=== PATIENT | female | born 1945 | race Caucasian/White ===

== ENCOUNTER 2017-04-06 15:50 | Inpatient (IN) | payer MEDICARE ==
[2017-04-06] VITALS (7 sets, daily range): BP systolic 116–135; BP diastolic 69–79; PULSE 86–106; RESP 18–40; TEMP 96.4–97.3; O2SAT 79–95
[~2017-04-06] VITALS: Ht 167.6 cm; Wt 48.6 kg
[~2017-04-06 15:50] MED LIST: ACLI1AER2 IN; ADVA250A INH; ASPI81 PO; ATOR10TA PO; DILT240C7 PO; DORZO2%O; LASI20TA PO; LATA.005%O EACH EYE; LORA10TA PO; LORTA5 PO; LOSA50TA; METO25CR PO; RANI150 PO; Z.0.COMMODE-3:1; Z.0.CPM; Z.0.WALKERFRONT
[2017-04-06] MEDS ORDERED: methylPREDNISolone SOD SUCC 125 MG/2 ML VIAL IV PUSH ONE (16:00)
[2017-04-06] MEDS ORDERED: SODIUM CHLORIDE 0.9% FLUSH 10 ML FLUSH IVF PRN (16:00)
--- NOTE | 2017-04-06 16:04 | PD ---
HPI Chief Complaint: Respiratory Distress Time Seen by Provider: 16:00 Travel History International Travel<30 days: No Contact w/Intl Traveler<30days: No Traveled to known affect area: No History of Present Illness HPI The patient was seen and examined in the presence of the nurse. This patient complains of shortness of breath. She has history of long-standing COPD. She is smoked up until 5 days ago. She's been short of breath for the last 10 days. She has a chronic cough. She denies chest pain or fever. Symptoms are severe. She is hypoxic on room air. She uses oxygen at home as needed. She has a nebulizer. No alleviating factors. Symptoms exacerbated by her continued smoking despite chronic lung disease PFSH Past Medical History Arthritis: No Asthma: Yes Atrial Fibrillation: Yes Anxiety: Yes Depression: Yes Heart Rhythm Problems: Yes (AFIB ) Cancer: Yes (CERVICAL AND UTERINE) Cardiovascular Problems: Yes (A FIB, CAD, HEART STENTS) High Cholesterol: Yes Chest Pain: No Congestive Heart Failure: No COPD: Yes Cerebrovascular Accident: No Coronary Artery Disease: Yes Diabetes: No Diminished Hearing: No Endocrine: No Gastrointestinal Disorders: Yes GERD: Yes Glaucoma: Yes Genitourinary: No Headaches: Yes Hepatitis: Yes (HISTORY OF A,B AND C) Hiatal Hernia: No Hypertension: Yes Immune Disorder: No Implanted Vascular Access Dvce: Yes Kidney Stones: No Musculoskeletal: Yes (RIGHT KNEE) Neurologic: No Psychiatric: No Reproductive: No Respiratory: Yes (COPD) Immunizations Current: Yes Migraines: No Seizures: No Thyroid Disease: No Menopausal: Yes Past Surgical History Abdominal Surgery: Yes AICD: No Body Medical Devices: CARDIAC AND LEG STENTS Cardiac Surgery: No Ear Surgery: No Endocrine Surgery: No Eye Surgery: Yes (JEB CATARACTS WITH LENS IMPLANTS) Genitourinary Surgery: No Gynecologic Surgery: Yes (HYSTERECTOMY) Hysterectomy: Yes Joint Replacement: No Oral Surgery: Yes (TONSILLECTOMY) Pacemaker: No Thoracic Surgery: No Tonsillectomy: Yes Other Surgery: Yes (EXCISION OF PAROTID TUMOR/GLAND TOTAL;FEMORAL STENTS) Social History Alcohol Use: No Tobacco Use: Yes (2 CIGS/DAY) Substance Use: No Allergies-Medications (Allergen,Severity, Reaction): Coded Allergies: lisinopril (Unverified Allergy, Intermediate, 04/06/17) BLISTERS AND COUGH brimonidine (Unverified Allergy, Unknown, UNKNOWN, 04/06/17) Reported Meds & Prescriptions Reported Meds & Active Scripts Active Reported Losartan (Losartan Potassium) 25 Mg Tab 25 Mg PO DAILY Furosemide 20 Mg Tab 20 Mg PO BID Diltiazem ER 12 HR (Diltiazem HCl) 120 Mg Caper 240 Mg PO BID Metoprolol Tartrate 25 Mg Tab 25 Mg PO BID Review of Systems General / Constitutional: No: Fever Eyes: No: Visual changes HENT: Positive: Congestion, No: Headaches Cardiovascular: No: Chest Pain or Discomfort Respiratory: Positive: Cough, Shortness of Breath, Wheezing Gastrointestinal: No: Abdominal Pain Genitourinary: No: Dysuria Musculoskeletal: No: Pain Skin: No Rash Neurologic: No: Weakness Psychiatric: No: Depression Endocrine: No: Polydipsia Hematologic/Lymphatic: No: Easy Bruising Physical Exam Narrative GENERAL: Thin elderly patient in respiratory distress. SKIN: Focused skin assessment reveals no rash and nodules. Skin is Warm and dry. HEAD: Atraumatic. Normocephalic. EYES: Pupils equal and round. No scleral icterus. No injection or drainage. ENT: No nasal bleeding or discharge. Mucous membranes pink and moist. NECK: Trachea midline. No JVD. CARDIOVASCULAR: Regular rate and rhythm. No murmur appreciated. RESPIRATORY: Positive accessory muscle use. Diffuse expiratory wheezing with rhonchi . breath sounds equal bilaterally. GASTROINTESTINAL: Abdomen soft, non-tender, nondistended. Hepatic and splenic margins not palpable. MUSCULOSKELETAL: No obvious deformities. No clubbing. No cyanosis. No edema. NEUROLOGICAL: Awake and alert. No obvious cranial nerve deficits. Motor grossly within normal limits. Normal speech. PSYCHIATRIC: Appropriate mood and affect; insight and judgment poor . Data Data Last Documented VS Vital Signs Date Time Temp Pulse Resp B/P (MAP) Pulse Ox O2 Delivery O2 Flow Rate FiO2 04/06/17 17:01 95 Nasal Cannula 3.00 04/06/17 15:59 40 04/06/17 15:57 106 04/06/17 15:52 96.4 Orders Orders Complete Blood Count With Diff (04/06/17 16:00) Basic Metabolic Panel (Bmp) (04/06/17 16:00) Influenzae A/B Antigen (04/06/17 16:00) Iv Access Insert/Monitor (04/06/17 16:00) Electrocardiogram (04/06/17 16:00) Ecg Monitoring (04/06/17 16:00) Oximetry (04/06/17 16:00) Oxygen Administration (04/06/17 16:00) Chest, Single Ap (04/06/17 16:00) Sodium Chloride 0.9% Flush (Ns Flush) (04/06/17 16:00) Methylprednisolone So Succ Inj (Solumedr (04/06/17 16:00) Albuterol-Ipratropium Neb (Duoneb Neb) (04/06/17 16:00) Ceftriaxone Inj (Rocephin Inj) (04/06/17 16:45) Admit To Inpatient (04/06/17 ) Code Status (04/06/17 16:56) Vital Signs (Adult) Q4H (04/06/17 16:56) Activity Oob With Assistance (04/06/17 16:56) Diet 1800 Ada Cons Carb (04/06/17 Dinner) Sodium Chloride 0.9% Flush (Ns Flush) (04/06/17 17:00) Sodium Chloride 0.9% Flush (Ns Flush) (04/06/17 21:00) Acetaminophen (Tylenol) (04/06/17 17:00) Ondansetron Inj (Zofran Inj) (04/06/17 17:00) Basic Metabolic Panel (Bmp) (04/07/17 06:00) Complete Blood Count With Diff (04/07/17 06:00) Chest, Pa & Lat (04/07/17 08:00) Electrocardiogram (04/06/17 16:56) Resp Oxygen Kimani C Titrat 1-4 L (04/06/17 ) Pt Request For Service (04/06/17 16:56) Scd Bilateral/Knee High SAMIRA.BID (04/06/17 16:56) Naloxone Inj (Narcan Inj) (04/06/17 17:00) Magnesium Hydroxide Liq (Milk Of Magnesi (04/06/17 17:00) Inpatient Certification (04/06/17 ) Ceftriaxone Inj (Rocephin Inj) (04/07/17 08:00) Azithromycin (Zithromax) (04/06/17 17:00) Azithromycin (Zithromax) (04/07/17 09:00) Albuterol-Ipratropium Neb (Duoneb Neb) (04/06/17 20:00) Albuterol-Ipratropium Neb (Duoneb Neb) (04/06/17 17:00) Methylprednisolone So Succ Inj (Solumedr (04/06/17 17:00) Atorvastatin (Lipitor) (04/06/17 21:00) Fluticason-Vilanter 100-25 Inh (Breo Ell (04/06/17 17:15) 1/2 Ns + Kcl 20 Meq Inj (1/2 Ns + Kcl 20 (04/06/17 18:00) Metoprolol Tartrate (Lopressor) (04/06/17 21:00) Diltiazem Cd (Cardizem Cd) (04/06/17 21:00) Albuterol-Ipratropium Neb (Duoneb Neb) (04/06/17 20:00) Methylprednisolone So Succ Inj (Solumedr (04/06/17 23:00) Admit Order (Ed Use Only) (04/06/17 17:46) Labs Laboratory Tests Test 04/06/17 16:30 White Blood Count 17.0 TH/MM3 Red Blood Count 5.39 MIL/MM3 Hemoglobin 16.2 GM/DL Hematocrit 49.9 % Mean Corpuscular Volume 92.7 FL Mean Corpuscular Hemoglobin 30.1 PG Mean Corpuscular Hemoglobin Concent 32.5 % Red Cell Distribution Width 14.6 % Platelet Count 247 TH/MM3 Mean Platelet Volume 9.1 FL Neutrophils (%) (Auto) 84.6 % Lymphocytes (%) (Auto) 6.8 % Monocytes (%) (Auto) 8.2 % Eosinophils (%) (Auto) 0.1 % Basophils (%) (Auto) 0.3 % Neutrophils # (Auto) 14.4 TH/MM3 Lymphocytes # (Auto) 1.2 TH/MM3 Monocytes # (Auto) 1.4 TH/MM3 Eosinophils # (Auto) 0.0 TH/MM3 Basophils # (Auto) 0.1 TH/MM3 CBC Comment DIFF FINAL Differential Comment MDM Medical Decision Making Medical Screen Exam Complete: Yes Emergency Medical Condition: Yes Medical Record Reviewed: Yes Differential Diagnosis Differential diagnosis includes COPD, asthma, pneumonia, bronchitis, CHF Narrative Course I have reviewed the patient's electronic medical record. Patient was last here in 2016 This patient arrives critically ill with acute hypoxic respiratory failure from COPD IV placed I gave her IV soluMedrol and a series of 3 nebulizer treatments On 6 L nasal cannula she is barely getting 90% CBC shows leukocytosis which she's been on a lot of steroids lately Metabolic profile is pending I reviewed her chest x-ray which shows COPD changes as well as questionable right before meals infiltrate I reviewed her EKG shows A. fib which is chronic per patient Extended cardiac monitoring shows A. fib but rate controlled in the 80s Patient came in extremely dyspneic and critical at this point is improved with the above treatments but still requiring hospitalization and not stable for outpatient follow-up. Case reviewed with hospitalist will admit Critical Care Narrative Aggregate critical care time was 34 minutes. Time to perform other separately billable procedures was not included in the critical care time. My time did not include minutes spent treating any other patients simultaneously or on activities that did not directly contribute to the patient's treatment. The services I provided to this patient were to treat and/or prevent clinically significant deterioration that could result in: Cardiopulmonary arrest, hypoxemic brain injury, respiratory collapse I provided critical care services requiring my management, as noted below: Chart data review, documentation time, medication orders and management, vital sign assessments/reviewing monitor data, ordering and reviewing lab tests, ordering and interpreting/reviewing x-rays and diagnostic studies, care of the patient and discussion of the patient with the admitting physicians. Diagnosis Primary Impression: Acute respiratory failure with hypoxia Additional Impression: COPD exacerbation Admitting Information Admitting Physician Requests: Admit Mohit Peña MD Apr 06, 2017 16:04
[2017-04-06] MEDS: RESP: ALBUTEROL 2.5 MG/IPRATROPIUM 0.5 MG NEB (SCH) INH (16:05)
[2017-04-06] MEDS ORDERED: DILT120C9 PO (16:13)
[2017-04-06] MEDS ORDERED: FURO20TA PO (16:13)
[2017-04-06] MEDS ORDERED: METO25TA3 PO (16:13)
[2017-04-06] MEDS ORDERED: LOSA25TA PO (16:13)
--- NOTE | 2017-04-06 16:29 | RADRPT ---
EXAM DATE/TIME: 04/06/2017 16:20 [facility] COMPARISON: CHEST SINGLE AP, March 19, 2014, 7:45. INDICATIONS : Shortness of breath. MEDICAL HISTORY : Hypertension. Hypercholesterolemia. Hypertension. Coronary artery disease, AFIB, COPD, SURGICAL HISTORY : Stents. ENCOUNTER: Initial ACUITY: 2 weeks PAIN SCORE: 0/10 LOCATION: Bilateral chest FINDINGS: A single view of the chest demonstrates hyperaeration both lung del real with a new mild infiltrate in the right lung base. Left lung is grossly clear. Heart size is stable. There are no pleural effusions or pulmonary edema. The bony structures are stable.. CONCLUSION: 1. COPD with new patchy infiltrate in the right lung base suggestive of pneumonia. Lonnie Bunch MD on April 06, 2017 at 16:26 Board Certified Radiologist. This report was verified electronically.
[2017-04-06] MEDS ORDERED: cefTRIAXone INJ 1,000 MG in SODIUM CHLORIDE 0.9% INJ 100 ML IV ONE (16:45)
[2017-04-06] MEDS ORDERED: RESP: ALBUTEROL 2.5 MG/IPRATROPIUM 0.5 MG NEB (PRN) NEB (17:00)
[2017-04-06] MEDS ORDERED: methylPREDNISolone SOD SUCC 125 MG/2 ML VIAL IV PUSH SCH (17:00)
[2017-04-06] MEDS ORDERED: ACETAMINOPHEN 325 MG TAB PO PRN (17:00)
[2017-04-06] MEDS ORDERED: MAGNESIUM HYDROXIDE SUSP 30 ML CUP PO PRN (17:00)
[2017-04-06] MEDS ORDERED: AZITHROMYCIN 250 MG TAB PO ONE (17:00)
[2017-04-06] MEDS ORDERED: NALOXONE HCL 0.4 MG/ML AMP IV PUSH PRN (17:00)
[2017-04-06] MEDS ORDERED: ONDANSETRON HCL 4 MG/2 ML VIAL IVP PRN (17:00)
[2017-04-06] MEDS ORDERED: SODIUM CHLORIDE 0.9% FLUSH 10 ML FLUSH IV FLUSH PRN (17:00)
[2017-04-06 17:20] LABS: AUTOMATED NEUTROPHIL # 14.4 TH/MM3 (1.8-7.7); BASOPHIL # 0.1 TH/MM3 (0-0.2); BASOPHIL % 0.3 % (0.0-2.0); EOSINOPHIL % 0.1 % (0.0-4.0); HEMATOCRIT 49.9 % (35.0-46.0); HEMO FLAGS DIFF FINAL; LYMPH % 6.8 % (9.0-44.0); LYMPHOCYTE # 1.2 TH/MM3 (1.0-4.8); MEAN CELL VOLUME 92.7 FL (80.0-100.0); MEAN CORPUSCULAR HEMOGLOBIN 30.1 PG (27.0-34.0); MEAN CORPUSCULAR HGB CONC 32.5 % (32.0-36.0); MONO % 8.2 % (0.0-8.0); NEUT % 84.6 % (16.0-70.0); PLATELET COUNT 247 TH/MM3 (150-450); RED BLOOD COUNT 5.39 MIL/MM3 (4.00-5.30); RED CELL DISTRIBUTION WIDTH 14.6 % (11.6-17.2)
--- NOTE | 2017-04-06 17:30 | HHI.HP ---
HPI Service [facility] Hospitalists Primary Care Physician Lon Garrison, DO Admission Diagnosis Chief Complaint: "just not getting any better" cough and SOB x 10 days Travel History International Travel<30 Days: No Contact w/Intl Traveler <30 Da: No Traveled to Known Affected Are: No History of Present Illness This is 72 year old female patient with a past medical history which includes COPD, DM type 2, HTN, hypolipidemia, atrial fibrillation, 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 Patient reports she has mild SOB with chronic cough at baseline , but over the past 10days the SOB has gotten progressively worse. Patient endorses wheezing. Patient unable to sleep through the night due to her SOB and cough. Cough is non productive. Patient endorses associated decreased appetite as well. Patient reports that 2 of her family members have been sick with, "sinus infection." Denies other sick contacts. Patient denies fevers, chills, N/V/D/C, chest pain or dysuria. CXR in ER reveals: COPD with new patchy infiltrate in the right lung base suggestive of RLL pna oxygen saturation on RA upon arrival 79% WBC 17.0 Review of Systems Constitutional: COMPLAINS OF: Fatigue, DENIES: Fever, Chills Eyes: DENIES: Blurred vision, Diplopia, Vision loss Respiratory: COMPLAINS OF: Cough, Wheezing, Shortness of breath, DENIES: Sputum production Cardiovascular: COMPLAINS OF: Dyspnea on Exertion, Orthopnea, DENIES: Chest pain, Palpitations, Lower Extremity Edema Gastrointestinal: DENIES: Abdominal pain, Nausea, Vomiting Neurologic: DENIES: Abnormal gait, Headache, Localized weakness, Speech Problems Psychiatric: DENIES: Anxiety, Confusion, Depression Past Family Social History Past Medical History Severe COPD. Chronic atrial fibrillation. She has PAD and had stenting of the left lower extremity, the iliac and the superficial femoral arteries. History of IV drug use and subsequently hepatitis C. hyperlipidemia. degenerative joint disease. hypertension. Glaucoma osteoporosis parotid surgery which apparently was a benign Warthin's tumor. Past Surgical History Cataract surgery LASIK surgery. Right knee arthroscopic surgery for lateral meniscal tear. Tonsillectomy and adenoidectomy. BESSIE, BSO. Reported Medications Losartan (Losartan Potassium) 25 Mg Tab 25 Mg PO DAILY Furosemide 20 Mg Tab 20 Mg PO BID Diltiazem ER 12 HR (Diltiazem HCl) 120 Mg Caper 240 Mg PO BID Metoprolol Tartrate 25 Mg Tab 25 Mg PO BID Breo ellipta 100/25 1 puff once a day Atorvastatin 10 PO QHS Allergies: Coded Allergies: lisinopril (Unverified Allergy, Intermediate, 04/06/17) BLISTERS AND COUGH brimonidine (Unverified Allergy, Unknown, UNKNOWN, 04/06/17) Active Ordered Medications Current Medications Medications (Trade) Dose Ordered Sig/Libia Route Start Time Stop Time Status Last Admin (NS Flush) 2 ml UNSCH PRN IVF 04/06/17 16:00 (NS Flush) 2 ml UNSCH PRN IV FLUSH 04/06/17 17:00 (NS Flush) 2 ml BID IV FLUSH 04/06/17 21:00 (Tylenol) 650 mg Q4H PRN PO 04/06/17 17:00 (Zofran Inj) 4 mg Q6H PRN IVP 04/06/17 17:00 (Narcan Inj) 0.4 mg UNSCH PRN IV PUSH 04/06/17 17:00 (Milk Of Magnesia Liq) 30 ml Q12H PRN PO 04/06/17 17:00 Ceftriaxone Sodium 1000 mg/ Sodium Chloride 100 ml @ 200 mls/hr Q24H IV 04/07/17 08:00 (Zithromax) 250 mg DAILY PO 04/07/17 09:00 (Duoneb Neb) 1 ampule Q2HR NEB PRN NEB 04/06/17 17:00 (Lipitor) 10 mg HS PO 04/06/17 21:00 (Breo Ellipta 100-25 Inh) 1 puff DAILY INH 04/06/17 17:15 Potassium Chloride/Sodium Chloride 1,000 ml @ 84 mls/hr [id number] IV 04/06/17 18:00 (Lopressor) 25 mg BID PO 04/06/17 21:00 (Cardizem Cd) 240 mg BID PO 04/06/17 21:00 (Duoneb Neb) 1 ampule Q4HR NEB NEB 04/06/17 20:00 (SoluMEDROL INJ) 60 mg Q6H IV PUSH 04/06/17 23:00 Family History noncontributory Social History hx ivdu quit smoking 5 days ago prior to that has a 30 pack year history denies ETOH use Physical Exam Vital Signs Vital Signs Date Time Temp Pulse Resp B/P (MAP) Pulse Ox O2 Delivery O2 Flow Rate FiO2 04/06/17 17:01 95 Nasal Cannula 3.00 04/06/17 16:15 95 Nasal Cannula 3.00 04/06/17 15:59 40 82 Room Air 04/06/17 15:57 106 40 82 04/06/17 15:55 99 Aerosol Mask 8.00 04/06/17 15:52 96.4 97 22 116/79 (91) 79 Physical Exam GENERAL: This is an elderly female patient, well-developed patient, SOB with conversation sitting up leaning forward SKIN: scattered ecchymosis BUE generally thin skin HEAD: Atraumatic. Normocephalic. No temporal or scalp tenderness. EYES: Extraocular motions intact. No scleral icterus. No injection or drainage. CARDIOVASCULAR: Regular rate and rhythm RESPIRATORY: Coarse scattered rhonchi through out with both inspiration and expiration GASTROINTESTINAL: Abdomen soft, non-tender, nondistended. No guarding. MUSCULOSKELETAL: Extremities without clubbing, cyanosis, or edema. No joint tenderness, effusion, or edema noted. No calf tenderness. Negative Homans sign bilaterally. NEUROLOGICAL: Awake and alert. No focal deficits noted. Motor and sensory grossly within normal limits. 4 out of 5 muscle strength in all muscle groups. Normal speech. Laboratory Laboratory Tests Test 04/06/17 16:30 White Blood Count 17.0 Red Blood Count 5.39 Hemoglobin 16.2 Hematocrit 49.9 Mean Corpuscular Volume 92.7 Mean Corpuscular Hemoglobin 30.1 Mean Corpuscular Hemoglobin Concent 32.5 Red Cell Distribution Width 14.6 Platelet Count 247 Mean Platelet Volume 9.1 Neutrophils (%) (Auto) 84.6 Lymphocytes (%) (Auto) 6.8 Monocytes (%) (Auto) 8.2 Eosinophils (%) (Auto) 0.1 Basophils (%) (Auto) 0.3 Neutrophils # (Auto) 14.4 Lymphocytes # (Auto) 1.2 Monocytes # (Auto) 1.4 Eosinophils # (Auto) 0.0 Basophils # (Auto) 0.1 CBC Comment DIFF FINAL Differential Comment Date/Time Source Procedure Growth Status 04/06/17 16:30 Nasal Washing Influenza Types A,B Antigen (SUSY) - Final NEGATIVE FOR FLU A AND B ANTIGEN.... Complete Result Diagram: 04/06/17 1630 Imaging Last Impressions Chest X-Ray 04/06/17 1600 Signed Impressions: Service Date/Time: Thursday, April 06, 2017 16:20 - CONCLUSION: 1. COPD with new patchy infiltrate in the right lung base suggestive of pneumonia. MD Marc Alcala VTE Risk Assessment Marc VTE Risk Assessment: Mod/High Risk (score >= 2) Caprini Risk Assessment Model Point Value = 1 Point Value = 2 Point Value = 3 Point Value = 5 Age 41-60 Minor surgery BMI > 25 kg/m2 Swollen legs Varicose veins or History of unexplained or recurrent spontaneous Oral contraceptives or hormone replacement Sepsis (< 1 month) Serious lung disease, including pneumonia (< 1 month) Abnormal pulmonary function Acute myocardial infarction Congestive heart failure (< 1 month) History of inflammatory bowel disease Medical patient at bed rest Age 61-74 Arthroscopic surgery Major open surgery (> 45 min) Laparoscopic surgery (> 45 min) Malignancy Confined to bed (> 72 hours) Immobilizing plaster cast Central venous access Age >= 75 History of VTE Family history of VTE Factor V Leiden Prothrombin [id number] Lupus anticoagulant Anticardiolipin antibodies Elevated serum homocysteine Heparin-induced thrombocytopenia Other congenital or acquired thrombophilia Stroke (< 1 month) Elective arthroplasty Hip, pelvis, or leg fracture Acute spinal cord injury (< 1 month) Prophylaxis Regimen Total Risk Factor Score Risk Level Prophylaxis Regimen 0-1 Low Early ambulation 2 Moderate Order ONE of the following: *Sequential Compression Device (SCD) *Heparin 5000 units SQ BID 3-4 Higher Order ONE of the following medications: *Heparin 5000 units SQ TID *Enoxaparin/Lovenox 40 mg SQ daily (WT < 150 kg, CrCl > 30 mL/min) *Enoxaparin/Lovenox 30 mg SQ daily (WT < 150 kg, CrCl > 10-29 mL/min) *Enoxaparin/Lovenox 30 mg SQ BID (WT < 150 kg, CrCl > 30 mL/min) AND/OR *Sequential Compression Device (SCD) 5 or more Highest Order ONE of the following medications: *Heparin 5000 units SQ TID (Preferred with Epidurals) *Enoxaparin/Lovenox 40 mg SQ daily (WT < 150 kg, CrCl > 30 mL/min) *Enoxaparin/Lovenox 30 mg SQ daily (WT < 150 kg, CrCl > 10-29 mL/min) *Enoxaparin/Lovenox 30 mg SQ BID (WT < 150 kg, CrCl > 30 mL/min) AND *Sequential Compression Device (SCD) Assessment and Plan Problem List: (1) PNA (pneumonia) ICD Codes: J18.9 - Pneumonia, unspecified organism Plan: This is 72 year old female patient with a past medical history which includes COPD, HTN, hypolipidemia, atrial fibrillation, 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 Patient reports she has mild SOB with chronic cough at baseline , but over the past 10days the SOB has gotten progressively worse. Patient endorses wheezing. Patient unable to sleep through the night due to her SOB and cough. Cough is non productive. Patient endorses associated decreased appetite as well. CXR in ER reveals: COPD with new patchy infiltrate in the right lung base suggestive of RLL pna oxygen saturation on RA upon arrival 72% WBC 17.0 Rocephin IV and azithromycin PO Duonebs Q4H and PRN supplemental oxygen to maintain saturation >90% repeat CXR in AM PT eval and treat DVT prophylaxis with SCDs (2) COPD exacerbation ICD Codes: J44.1 - Chronic obstructive pulmonary disease with (acute) exacerbation Plan: given solu medrol 125 on ER will start solu medrol 60mg IV Q6H patient is on Breo Ellipta continue (3) Diabetes mellitus ICD Codes: E11.9 - Type 2 diabetes mellitus without complications Plan: regularly diet controlled, not on medication at home- last HA1c 6.4% 2016 diabetic diet accu checks ACHS with SSI coverage monitor for hyperglycemia with steroids (4) Afib ICD Codes: I48.91 - Afib Status: Acute Plan: continue patient's home Cardizem 240 mg daily (5) HTN (hypertension) ICD Codes: I10 - Essential (primary) hypertension Plan: Continues patient's home metoprolol 25 mg daily hold Losartan 25 mg PO daily will resume if BP elevates monitor BP trend (6) Hyperlipemia ICD Codes: E78.5 - Hyperlipidemia, unspecified Plan: continue patient's home atorvastatin (7) Tobacco abuse ICD Codes: Z72.0 - Tobacco abuse Status: Acute Plan: Patient reports that she quit 5 days ago encouraged patient to abstain Physician Certification 2 Midnight Certification Type: Admission for Inpatient Services Order for Inpatient Services The services are ordered in accordance with Medicare regulations or non- Medicare payer requirements, as applicable. In the case of services not specified as inpatient-only, they are appropriately provided as inpatient services in accordance with the 2-midnight benchmark. Estimated LOS (days): 3 days is the estimated time the patient will need to remain in the hospital, assuming treatment plan goals are met and no additional complications. Post-Hospital Plan: Not yet determined Kerry Morales Apr 06, 2017 17:30
[2017-04-06] MEDS ORDERED: FLUT1INH INH (17:57)
[2017-04-06] MEDS ORDERED: ATOR10TA15 PO (17:57)
[2017-04-06] MEDS: FLUTICASONE 100 MCG/VILANTEROL 25 MCG INHALER INH SCH (18:18)
[2017-04-06] MEDS: 1/2 NS + KCL 20 MEQ INJ 1,000 ML IV SCH (18:19)
[2017-04-06 18:47] LABS: BICARBONATE 31.4 MEQ/L (21.0-32.0)
[2017-04-06 18:53] LABS: POTASSIUM 4.8 MEQ/L (3.5-5.1)
[2017-04-06] MEDS: RESP: ALBUTEROL 2.5 MG/IPRATROPIUM 0.5 MG NEB (SCH) NEB ×2 (19:37→23:53)
[2017-04-06] MEDS ORDERED: RESP: ALBUTEROL 2.5 MG/IPRATROPIUM 0.5 MG NEB (SCH) NEB (20:00)
[2017-04-06] MEDS: ATORVASTATIN 10 MG TAB PO SCH (21:00)
[2017-04-06] MEDS: SODIUM CHLORIDE 0.9% FLUSH 10 ML FLUSH IV FLUSH SCH (21:00)
[2017-04-06] MEDS: DILTIAZEM-CD 240 MG CAP ER PO SCH (21:00)
[2017-04-06] MEDS: METOPROLOL TARTRATE 25 MG TAB PO SCH (21:00)
[2017-04-06] MEDS: methylPREDNISolone SOD SUCC 125 MG/2 ML VIAL IV PUSH SCH (23:48)
[2017-04-07] VITALS (8 sets, daily range): BP systolic 100–125; BP diastolic 55–73; PULSE 84–109; RESP 17–19; TEMP 97.1–97.5; O2SAT 93–97
[2017-04-07] MEDS: RESP: ALBUTEROL 2.5 MG/IPRATROPIUM 0.5 MG NEB (SCH) NEB ×7 (04:13→23:16)
[2017-04-07] MEDS: methylPREDNISolone SOD SUCC 125 MG/2 ML VIAL IV PUSH SCH ×4 (06:31→21:56)
[2017-04-07] MEDS: 1/2 NS + KCL 20 MEQ INJ 1,000 ML IV SCH (06:31)
[2017-04-07 07:28] LABS: AUTOMATED NEUTROPHIL # 7.8 TH/MM3 (1.8-7.7); BASOPHIL % 0.2 % (0.0-2.0); HEMATOCRIT 45.7 % (35.0-46.0); HEMO FLAGS DIFF FINAL; LYMPH % 3.8 % (9.0-44.0); LYMPHOCYTE # 0.3 TH/MM3 (1.0-4.8); MEAN CELL VOLUME 91.9 FL (80.0-100.0); MEAN CORPUSCULAR HEMOGLOBIN 30.3 PG (27.0-34.0); MONO % 1.9 % (0.0-8.0); NEUT % 94.1 % (16.0-70.0); PLATELET COUNT 220 TH/MM3 (150-450); RED BLOOD COUNT 4.97 MIL/MM3 (4.00-5.30); RED CELL DISTRIBUTION WIDTH 14.4 % (11.6-17.2); WHITE BLOOD COUNT 8.3 TH/MM3 (4.0-11.0)
[2017-04-07 07:47] LABS: BICARBONATE 29.4 MEQ/L (21.0-32.0); POTASSIUM 5.1 MEQ/L (3.5-5.1)
[2017-04-07] MEDS: METOPROLOL TARTRATE 25 MG TAB PO SCH ×2 (09:09→21:55)
[2017-04-07] MEDS: DILTIAZEM-CD 240 MG CAP ER PO SCH (09:09)
[2017-04-07] MEDS: AZITHROMYCIN 250 MG TAB PO SCH (09:09)
[2017-04-07] MEDS: SODIUM CHLORIDE 0.9% FLUSH 10 ML FLUSH IV FLUSH SCH ×2 (09:09→21:58)
[2017-04-07] MEDS: cefTRIAXone INJ 1,000 MG in SODIUM CHLORIDE 0.9% INJ 100 ML IV SCH (09:10)
--- NOTE | 2017-04-07 09:19 | RADRPT ---
EXAM DATE/TIME: 04/07/2017 08:18 [facility] COMPARISON: CHEST SINGLE AP, April 06, 2017, 16:20. INDICATIONS : Pneumonia. Cough. Short of breath. MEDICAL HISTORY : Hypertension. Hypercholesterolemia. Hypertension. Coronary artery disease. AFIB. COPD. SURGICAL HISTORY : Stents. ENCOUNTER: Subsequent ACUITY: 3 days PAIN SCORE: 0/10 LOCATION: Bilateral chest FINDINGS: PA and lateral views of the chest demonstrate bibasilar airspace disease. Heart mildly enlarged.. Th e cardiomediastinal contours are unremarkable. Osseous structures are intact. CONCLUSION: Bibasilar pneumonia slightly worse on current study. Jamin Cooley MD on April 07, 2017 at 9:16 Board Certified Radiologist. This report was verified electronically.
--- NOTE | 2017-04-07 09:26 | HHI.PR ---
Subjective Remarks asking for sleeping pill, her lortab, diflucan for thrush and her "heart meds" Objective Vitals nad heart reg lung bilateral wheezing/rhonci abd s/nt ext no edema Vital Signs Date Time Temp Pulse Resp B/P (MAP) Pulse Ox O2 Delivery O2 Flow Rate FiO2 04/07/17 04:00 97.5 86 17 119/73 (88) 96 04/07/17 00:00 97.5 84 17 100/55 (70) 93 04/06/17 23:53 93 Nasal Cannula 2.00 04/06/17 20:14 04/06/17 20:10 97.3 104 18 135/69 (91) 94 04/06/17 19:38 95 Nasal Cannula 3.00 04/06/17 18:24 86 28 127/73 (91) 95 Nasal Cannula 3.00 04/06/17 17:01 95 Nasal Cannula 3.00 04/06/17 16:15 95 Nasal Cannula 3.00 04/06/17 15:59 40 82 Room Air 04/06/17 15:57 106 40 82 04/06/17 15:55 99 Aerosol Mask 8.00 04/06/17 15:52 96.4 97 22 116/79 (91) 79 Result Diagram: 04/07/17 0645 04/07/17 0645 Imaging Last Impressions Chest X-Ray 04/06/17 1600 Signed Impressions: Service Date/Time: Thursday, April 06, 2017 16:20 - CONCLUSION: 1. COPD with new patchy infiltrate in the right lung base suggestive of pneumonia. Lonnie Bunch MD A/P Problem List: (1) PNA (pneumonia) ICD Codes: J18.9 - Pneumonia, unspecified organism Plan: This is 72 year old female patient with a past medical history which includes COPD, HTN, hypolipidemia, atrial fibrillation, 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 Patient reports she has mild SOB with chronic cough at baseline , but over the past 10days the SOB has gotten progressively worse. Patient endorses wheezing. Patient unable to sleep through the night due to her SOB and cough. Cough is non productive. Patient endorses associated decreased appetite as well. CXR in ER reveals: COPD with new patchy infiltrate in the right lung base suggestive of RLL pna oxygen saturation on RA upon arrival 72% WBC 17.0 cont solumedrol and nebs. oxygen supplement cont abx with Rocephin IV and azithromycin PO PT eval and treat DVT prophylaxis (2) COPD exacerbation ICD Codes: J44.1 - Chronic obstructive pulmonary disease with (acute) exacerbation Status: Acute Plan: above (3) Diabetes mellitus ICD Codes: E11.9 - Type 2 diabetes mellitus without complications Status: Chronic Plan: regularly diet controlled, not on medication at home- last HA1c 6.4% 2016 diabetic diet accu checks ACHS with SSI coverage monitor for hyperglycemia with steroids (4) Afib ICD Codes: I48.91 - Afib Status: Acute Plan: continue patient's home Cardizem 240 mg daily (5) HTN (hypertension) ICD Codes: I10 - Essential (primary) hypertension Status: Chronic Plan: Continues patient's home metoprolol 25 mg daily hold Losartan 25 mg PO daily will resume if BP elevates monitor BP trend (6) Hyperlipemia ICD Codes: E78.5 - Hyperlipidemia, unspecified Status: Chronic Plan: continue patient's home atorvastatin (7) Tobacco abuse ICD Codes: Z72.0 - Tobacco abuse Status: Acute Plan: Patient reports that she quit 5 days ago encouraged patient to abstain Yon Browne MD Apr 07, 2017 09:26
[2017-04-07] MEDS ORDERED: TEMAZEPAM 15 MG CAP PO PRN (09:30)
[2017-04-07] MEDS ORDERED: ACETAMINOPHEN/HYDROcodone 325 MG/10 MG TAB PO PRN (09:30)
[2017-04-07] MEDS: FLUTICASONE 100 MCG/VILANTEROL 25 MCG INHALER INH SCH (11:44)
[2017-04-07] MEDS: ENOXAPARIN SODIUM 40 MG/0.4 ML SYRINGE SQ SCH ×2 (11:44→11:54)
[2017-04-07] MEDS ORDERED: FLUCONAZOLE 100 MG TAB PO ONE (12:00)
--- NOTE | 2017-04-07 18:01 | EKG ---
Date Performed: 04/06/2017 Time Performed: 16:09:24 PTAGE: 72 years EKG: ATRIAL FIBRILLATION ANTEROSEPTAL MYOCARDIAL INFARCTION Compared to PREVIOUS TRACING , ventricular response to atrial fibrillation is slightly slower PREVIOU S TRACIN03/19/2014 08.32 DOCTOR: Stew Cosme Interpretating Date/Time 04/07/2017 18:00:16
[2017-04-07] MEDS: ATORVASTATIN 10 MG TAB PO SCH (21:56)
[2017-04-08] VITALS: BP 119/72; PULSE 107; RESP 18; TEMP 97.2; O2SAT 98
[2017-04-08] MEDS: RESP: ALBUTEROL 2.5 MG/IPRATROPIUM 0.5 MG NEB (SCH) NEB ×5 (03:45→19:28)
[2017-04-08 04:00] VITALS: BP 115/65; PULSE 103; RESP 16; TEMP 97.6; O2SAT 99
[2017-04-08] MEDS: methylPREDNISolone SOD SUCC 125 MG/2 ML VIAL IV PUSH SCH ×3 (05:52→17:00)
[2017-04-08 07:32] LABS: BICARBONATE 31.8 MEQ/L (21.0-32.0); POTASSIUM 5.3 MEQ/L (3.5-5.1)
[2017-04-08 08:00] VITALS: BP 120/71; PULSE 96; RESP 20; TEMP 96.3; O2SAT 94
[2017-04-08] MEDS: cefTRIAXone INJ 1,000 MG in SODIUM CHLORIDE 0.9% INJ 100 ML IV SCH (08:47)
[2017-04-08] MEDS: SODIUM CHLORIDE 0.9% FLUSH 10 ML FLUSH IV FLUSH SCH (08:47)
[2017-04-08] MEDS: METOPROLOL TARTRATE 25 MG TAB PO SCH (08:47)
[2017-04-08] MEDS: AZITHROMYCIN 250 MG TAB PO SCH (08:47)
[2017-04-08] MEDS: FLUTICASONE 100 MCG/VILANTEROL 25 MCG INHALER INH SCH (08:48)
--- NOTE | 2017-04-08 08:50 | HHI.PR ---
Subjective Remarks near her baseline from breathing standpt. Objective Vitals heart reg lung wheezing rhonci but improved abd s/nt ext no edema 2lnc.o2 Vital Signs Date Time Temp Pulse Resp B/P (MAP) Pulse Ox O2 Delivery O2 Flow Rate FiO2 04/08/17 04:00 97.6 103 16 115/65 (82) 99 04/08/17 00:00 97.2 107 18 119/72 (88) 98 04/07/17 23:02 Nasal Cannula 2.00 04/07/17 20:00 97.5 91 18 113/68 (83) 96 04/07/17 19:18 97 Nasal Cannula 2.00 04/07/17 16:00 97.1 95 18 122/56 (78) 94 04/07/17 12:00 97.1 96 18 120/66 (84) 94 04/07/17 09:33 95 Nasal Cannula 2.00 Result Diagram: 04/07/17 0645 04/08/17 0506 Imaging Last Impressions Chest X-Ray 04/06/17 1600 Signed Impressions: Service Date/Time: Thursday, April 06, 2017 16:20 - CONCLUSION: 1. COPD with new patchy infiltrate in the right lung base suggestive of pneumonia. Lonnie Bunch MD A/P Problem List: (1) PNA (pneumonia) ICD Codes: J18.9 - Pneumonia, unspecified organism Plan: This is 72 year old female patient with a past medical history which includes COPD, HTN, hypolipidemia, atrial fibrillation, 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 Patient reports she has mild SOB with chronic cough at baseline , but over the past 10days the SOB has gotten progressively worse. Patient endorses wheezing. Patient unable to sleep through the night due to her SOB and cough. Cough is non productive. Patient endorses associated decreased appetite as well. CXR in ER reveals: COPD with new patchy infiltrate in the right lung base suggestive of RLL pna oxygen saturation on RA upon arrival 72% WBC 17.0 cont solumedrol and nebs. oxygen supplement cont abx with Rocephin IV and azithromycin PO PT eval and treat DVT prophylaxis ambulate this AM..reevaluate at noon....possible d/c home with abx and steroid taper later today. (2) COPD exacerbation ICD Codes: J44.1 - Chronic obstructive pulmonary disease with (acute) exacerbation Status: Acute Plan: above (3) Diabetes mellitus ICD Codes: E11.9 - Type 2 diabetes mellitus without complications Status: Chronic Plan: regularly diet controlled, not on medication at home- last HA1c 6.4% 2016 diabetic diet accu checks ACHS with SSI coverage monitor for hyperglycemia with steroids (4) Afib ICD Codes: I48.91 - Afib Status: Acute Plan: continue patient's home Cardizem 240 mg daily (5) HTN (hypertension) ICD Codes: I10 - Essential (primary) hypertension Status: Chronic Plan: Continues patient's home metoprolol 25 mg daily hold Losartan 25 mg PO daily will resume if BP elevates monitor BP trend (6) Hyperlipemia ICD Codes: E78.5 - Hyperlipidemia, unspecified Status: Chronic Plan: continue patient's home atorvastatin (7) Tobacco abuse ICD Codes: Z72.0 - Tobacco abuse Status: Acute Plan: Patient reports that she quit 5 days ago encouraged patient to abstain Yon Browne MD Apr 08, 2017 08:50
[2017-04-08 09:00] VITALS: O2SAT 98
[2017-04-08] MEDS ORDERED: DILTIAZEM-CD 240 MG CAP ER PO SCH (09:00)
[2017-04-08] MEDS ORDERED: FLUCONAZOLE 100 MG TAB PO SCH (09:00)
[2017-04-08] MEDS: ENOXAPARIN SODIUM 40 MG/0.4 ML SYRINGE SQ SCH (11:23)
[2017-04-08 12:00] VITALS: BP 112/67; PULSE 91; RESP 20; TEMP 97.2; O2SAT 92
[2017-04-08] MEDS ORDERED: PRED10 PO (13:29)
[2017-04-08] MEDS ORDERED: DIFL100T PO (13:31)
--- NOTE | 2017-04-08 13:32 | HHI.DCPOC ---
Discharge Care Plan Diagnosis: (1) COPD (chronic obstructive pulmonary disease) (2) PNA (pneumonia) (3) Diabetes mellitus (4) HTN (hypertension) (5) Afib (6) Hepatitis C (7) PAD (peripheral artery disease) Goals to Promote Your Health * To prevent worsening of your condition and complications * To maintain your health at the optimal level Directions to Meet Your Goals Take your medications as prescribed Follow your dietary instruction Follow activity as directed Keep your appointments as scheduled Take your immunizations and boosters as scheduled If your symptoms worsen call your PCP, if no PCP go to Urgent Care Center or Emergency Room Smoking is Dangerous to Your Health. Avoid second hand smoke Call the 24-hour hour crisis hotline for domestic abuse at Yon Browne MD Apr 08, 2017 13:32
[2017-04-08] MEDS ORDERED: ALBU.5I NEB (13:33)
[2017-04-08] MEDS ORDERED: IPRA0.02 NEB (13:33)
[2017-04-08] MEDS ORDERED: LEVA500T33 PO (13:34)
[2017-04-08 19:30] VITALS: O2SAT 98
[2017-04-08] MEDS ORDERED: TEMAZEPAM 15 MG CAP PO PRN (21:00)
== END 2017-04-08 20:19 | disposition home or self-care (01) | DRG 193 ==
LOC: NEPE 15:50 → NEDH 17:48 → N04B 19:55
PROVIDERS: ADMIT Hospitalist; ATTEND Hospitalist
DX: J18.9 Pneumonia, unspecified organism (principal); J96.01 Acute respiratory failure with hypoxia; J44.0 Chronic obstructive pulmonary disease with (acute) lower respiratory infection; E11.51 Type 2 diabetes mellitus with diabetic peripheral angiopathy without gangrene; B37.0 Candidal stomatitis; J44.1 Chronic obstructive pulmonary disease with (acute) exacerbation; I48.2 Chronic atrial fibrillation; I10 Essential (primary) hypertension; K21.9 Gastro-esophageal reflux disease without esophagitis; H40.9 Unspecified glaucoma; I25.10 Atherosclerotic heart disease of native coronary artery without angina pectoris; F32.9 Major depressive disorder, single episode, unspecified; F41.9 Anxiety disorder, unspecified; E78.5 Hyperlipidemia, unspecified; M19.90 Unspecified osteoarthritis, unspecified site; M81.0 Age-related osteoporosis without current pathological fracture; B19.20 Unspecified viral hepatitis C without hepatic coma; Z99.81 Dependence on supplemental oxygen; Z87.891 Personal history of nicotine dependence; Z95.820 Peripheral vascular angioplasty status with implants and grafts; Z92.3 Personal history of irradiation; Z85.42 Personal history of malignant neoplasm of other parts of uterus; Z95.5 Presence of coronary angioplasty implant and graft
CPT/HCPCS: 71010; 71020; 80048; 85025; 87804; 93005; 94640; 94664; 96374; J0696; J1650; J2930